=== PATIENT | female | born 1990 | race Caucasian/White ===

== ENCOUNTER 2020-05-20 18:53 | Emergency (ER) | payer OTHER ==
[2020-05-20 19:04] VITALS: BP 120/85; PULSE 88; TEMP 98.7; BMI 33.2
[2020-05-20] MEDS ORDERED: diazePAM 5 MG TABLET PO ONE (20:01)
[2020-05-20] MEDS ORDERED: KETOROLAC TROMETHAMINE 30 MG/1 ML VIAL IM ONE (20:01)
[2020-05-20] MEDS ORDERED: diazePAM 5 MG TABLET ONE (20:13)
[2020-05-20] MEDS ORDERED: KETOROLAC TROMETHAMINE 60 MG/2 ML VIAL ONE (20:14)
--- NOTE | 2020-05-20 20:21 | PDOC ---
History of Present Illness - General Chief Complaint: Vaginal Bleeding Stated Complaint: BACK PAIN Time Seen by Provider: 05/20/20 19:35 History Source: Patient Exam Limitations: No Limitations - History of Present Illness Initial Comments: 05/20/20 20:16 29-year-old female Yoruba-speaking with history of lumbar "disc inflammation" presents complaining of low back pain radiating to bilateral hips x 3 days worsening today with associated numbness. Denies weakness, tingling, fever, direct trauma, urinary incontinence, bowel incontinence. Took an NSAID at approximately 8 AM today with minimal to no relief. Contrary to triage note, patient is not here for a complaint of vaginal bleeding. Patient began her normal menses yesterday. Denies pelvic cramping or pain and reports her menses is normal. Patient has an IUD in place. Denies any possibility of being . ROS: as above PE: GENERAL: Appears uncomfortable, sitting in a wheelchair leaning on her right side HEAD: NCAT EYES: Pupils equal, round and reactive to light, sclera anicteric, conjunctiva clear ENT: pharynx: no erythema, no exudate, uvula midline NECK: supple CHEST: nontender RESP: clear, no w/r/r CARDIO: rrr, no m/g/r ABD: +BS, soft, nontender, non distended BACK: left-sided thoracic and lumbar paraspinal tenderness to palpation, no midline spinal tenderness to palpation EXTREMITIES: Normal range of motion, no edema NEUROLOGICAL: Normal speech, unable to ambulate due to pain, 5/5 strength and sensation SKIN: Warm, Dry 05/20/20 20:59 Is this a multiple visit Asthma Patient?: No Past History - Medical History Allergies/Adverse Reactions: Allergies Allergy/AdvReac Type Severity Reaction Status Date / Time No Known Allergies Allergy Verified 05/20/20 19:01 Home Medications: Ambulatory Orders Cyclobenzaprine HCl 10 mg PO TID 3 Days #12 tablet 05/20/20 COPD: No - Reproductive History Is Patient Now?: No - Psycho-Social/Smoking History Smoking History: Never smoked Have you smoked in the past 12 months: No - Substance Abuse Hx (Audit-C & DAST Scrn) How often the patient has a drink containing alcohol: Never Score: In Men: 4 or > Positive; In Women: 3 or > Positive: 0 Screen Result (Pos requires Nsg. Audit-10AR): Negative *Physical Exam - Vital Signs Last Vital Signs Temp Pulse Resp BP Pulse Ox 98.7 F 88 18 120/85 100 05/20/20 19:01 05/20/20 19:01 05/20/20 19:01 05/20/20 19:01 05/20/20 19:01 ED Treatment Course - RADIOLOGY Radiology Studies Ordered: Category Date Time Status SPINE-LUMBAR SACRAL [RAD] Stat Radiology 05/20/20 20:01 Ordered SPINE-THORACIC [RAD] Stat Radiology 05/20/20 20:01 Ordered Medical Decision Making - Medical Decision Making 05/20/20 20:37 29-year-old female Yoruba-speaking with history of lumbar "disc inflammation" presents complaining of low back pain radiating to bilateral hips x 3 days worsening today with associated numbness. Denies weakness, tingling, fever, direct trauma, urinary incontinence, bowel incontinence. Took an NSAID at approximately 8 AM today with minimal to no relief. Contrary to triage note, patient is not here for a complaint of vaginal bleeding. Patient began her normal menses yesterday. Denies pelvic cramping or pain and reports her menses is normal. Patient has an IUD in place. Denies any possibility of being . thoracic and lumbar spine xrays toradol 30 mg IM valium 5 mg po x 1 dose re assess 05/20/20 20:48 LS and thoracic xray - lumbar straightening on my wet read patient has IUD in place will observe in ED for improvement of pain signed out to ABIDA Dash Discharge - Discharge Information Problems reviewed: Yes Clinical Impression/Diagnosis: Back pain Qualifiers: Back pain location: low back pain Chronicity: acute Back pain laterality: left Sciatica presence: with sciatica Sciatica laterality: sciatica of right side Qualified Code(s): M54.41 - Lumbago with sciatica, right side Condition: Stable Disposition: HOME - Admission No - Additional Discharge Information Prescriptions: Cyclobenzaprine HCl 10 mg PO TID 3 Days #12 tablet - Follow up/Referral Referrals: [facility] [place] [Provider Group] - Patient Discharge Instructions Additional Instructions: Alternate between acetaminophen 975 mg and ibuprofen 600 mg every 6 hours as needed for pain Take cyclobenzaprine 10 mg 1 tablet every 8 hours as needed Make an appointment to follow-up with a primary care physician within 1 week If worsening pain or any concerning symptoms return to ED - Post Discharge Activity
--- NOTE | 2020-05-20 21:18 | PDOC ---
*Physical Exam - Vital Signs Last Vital Signs Temp Pulse Resp BP Pulse Ox 98.7 F 88 18 120/85 100 05/20/20 19:01 05/20/20 19:01 05/20/20 19:01 05/20/20 19:01 05/20/20 19:01 ED Treatment Course - Medications Given in the ED: ED Medications Discontinued Medications Generic Name Dose Route Start Last Admin Trade Name Mau PRN Reason Stop Dose Admin Diazepam 5 mg 05/20/20 20:01 05/20/20 20:29 Valium - PO 05/20/20 20:02 5 mg ONCE ONE Administration Ketorolac Tromethamine 30 mg 05/20/20 20:01 05/20/20 20:29 Toradol Injection - IM 05/20/20 20:02 30 mg ONCE ONE Administration ED Progress Note - Progress Note Progress Note: 05/20/20 21:17 Briefly this is a 29-year-old female with lower back pain for 3 days. Patient was signed out to me by provider Karen Busch pending improvement of pain with medicine. Patient's exam is significant for tenderness to palpation over the lumbar paravertebrals without midline tenderness or neurological deficit. Patient received Toradol and Valium X-ray shows lumbar straightening Will reassess patient's pain and adjust treatment as needed Medical Decision Making - Medical Decision Making 05/20/20 22:06 Patient reports improvement in pain with meds and was able to ambulate in the ED Patient discharged with ibuprofen and Flexeril Patient was instructed not to drive or operate heavy machinery while taking Flexeril the patient was also instructed not to take the medication with any other sedating medications and not to drink alcohol while taking the medication. Pt appears well and is safe and stable for discharge with strict return precautions including signs and symptoms requring immediate return to the ED Supportive care instructions explained and given to pt. Reasons to return emergently to ER explained and given. Importance of follow up with PMD and other specialists as indicated stressed to pt. Pt verbalized understanding of instructions. Pt to follow up with PMD in 2 days. Discharge - Discharge Information Problems reviewed: Yes Clinical Impression/Diagnosis: Back pain Qualifiers: Back pain location: low back pain Chronicity: acute Back pain laterality: left Sciatica presence: with sciatica Sciatica laterality: sciatica of right side Qualified Code(s): M54.41 - Lumbago with sciatica, right side Condition: Stable Disposition: HOME - Additional Discharge Information Prescriptions: Cyclobenzaprine HCl 10 mg PO TID 3 Days #12 tablet Ibuprofen [Ibu] 600 mg PO TID 7 Days #21 tablet - Follow up/Referral Referrals: [facility] [place] [Provider Group] - Patient Discharge Instructions Patient Printed Discharge Instructions: DI for Back Pain With Sciatica Additional Instructions: Alternate between acetaminophen 975 mg and ibuprofen 600 mg every 6 hours as needed for pain Take cyclobenzaprine 10 mg 1 tablet every 8 hours as needed Make an appointment to follow-up with a primary care physician within 1 week If worsening pain or any concerning symptoms return to ED Print Language: SCOTTISH - Post Discharge Activity Work/Back to School Note: Back to Work
[2020-05-20] MEDS ORDERED: ACETAMINOPHEN 325 MG TABLET (FP) PO ONE (21:39)
[2020-05-20] MEDS ORDERED: ACETAMINOPHEN 325 MG TABLET (FP) ONE (22:00)
== END 2020-05-20 22:21 | disposition home or self-care (01) ==
LOC: JER 18:53
PROC: 3E0233Z Introduction of Anti-inflammatory into Muscle, Percutaneous Approach (ICD-10-PCS; principal; 2020-05-20)
DX: M54.41 Lumbago with sciatica, right side (principal)
CPT/HCPCS: 72070-TC-FY; 72100-TC-FY; 99284-25

== ENCOUNTER 2022-05-01 20:46 | Emergency (ER) | payer OTHER ==
[2022-05-01 20:58] VITALS: BP 109/72; PULSE 81; RESP 19; BMI 29.1
[2022-05-01 21:01] VITALS: TEMP 98.6
[2022-05-01 22:23] LABS: BASO % 0.1 % (0-2.0); EOS % 0.8 % (0-4.5); HEMATOCRIT 36.3 % (32.4-45.2); MCH 28.1 pg (25.7-33.7); MCHC 33.2 g/dl (32.0-36.0); MEAN CELL VOLUME 84.9 fl (80-96); MEAN PLT VOLUME 7.3 fl (7.5-11.1); MONO % 7.1 % (3.8-10.2); PLATELET COUNT 355 10^3/uL (134-434); RBC 4.27 M/mm3 (3.60-5.2); RDW 13.9 % (11.6-15.6); WHITE BLOOD COUNT 10.3 K/mm3 (4.0-10.0)
[2022-05-01 22:25] LABS: EPI CELLS 8 /uL (0-25.1); HYALINE CASTS 0 /uL (0-3.1); URINE APPEARANCE CLEAR; URINE BACTERIA 1532 /uL (0-1359); URINE BILIRUBIN NEGATIVE (NEGATIVE); URINE COLOR YELLOW; URINE GLUCOSE (UA) NEGATIVE (NEGATIVE); URINE KETONE TRACE (NEGATIVE); URINE LEUK ESTERASE NEGATIVE (NEGATIVE); URINE NITRITE NEGATIVE (NEGATIVE); URINE PROTEIN NEGATIVE (NEGATIVE); URINE RBC 5 /uL (0-23.9); URINE UROBILINOGEN 0.2 mg/dL (0.2-1.0); URINE WBC 6 /uL (0-25.8)
[2022-05-01 22:44] LABS: BLOOD UREA NITROGEN 10.3 mg/dL (7-18)
[2022-05-01 22:47] LABS: CREATININE 0.6 mg/dL (0.55-1.3)
== END 2022-05-02 00:34 | disposition home or self-care (01) ==
LOC: JER 20:46
DX: O23.41 Unspecified infection of urinary tract in pregnancy, first trimester (principal); O26.851 Spotting complicating pregnancy, first trimester; Z3A.01 Less than 8 weeks gestation of pregnancy
CPT/HCPCS: 36415; 76817-TC; 80048; 81003; 84702; 85025; 86850; 86900; 86901; 87086; 87186; 99284-25

== ENCOUNTER 2022-05-09 16:27 | Emergency (ER) | payer OTHER ==
[2022-05-09 16:45] VITALS: BP 103/63; PULSE 76; RESP 18; TEMP 98.2; BMI 37.1
[2022-05-09 18:38] LABS: BASO % 0.5 % (0-2.0); EOS % 1.2 % (0-4.5); HEMATOCRIT 34.8 % (32.4-45.2); HEMOGLOBIN 11.4 GM/dL (10.7-15.3); MCHC 32.9 g/dl (32.0-36.0); MEAN CELL VOLUME 85.1 fl (80-96); MEAN PLT VOLUME 7.4 fl (7.5-11.1); MONO % 5.4 % (3.8-10.2); NEUT % 73.9 % (42.8-82.8); PLATELET COUNT 375 10^3/uL (134-434); RBC 4.09 M/mm3 (3.60-5.2); RDW 13.8 % (11.6-15.6); WHITE BLOOD COUNT 11.4 K/mm3 (4.0-10.0)
[2022-05-09 18:58] LABS: CALCIUM 8.9 mg/dL (8.5-10.1)
[2022-05-09 18:59] LABS: ALBUMIN 3.7 g/dl (3.4-5.0); BLOOD UREA NITROGEN 10.6 mg/dL (7-18)
[2022-05-09 19:02] LABS: CREATININE 0.5 mg/dL (0.55-1.3)
[2022-05-09 19:04] LABS: BILIRUBIN,TOTAL 0.4 mg/dL (0.2-1); TOT PROT 7.4 g/dl (6.4-8.2)
[2022-05-09] MEDS ORDERED: METHOTREXATE SODIUM/PF 25 MG/ML VIAL IM ONE (20:05)
== END 2022-05-09 21:03 | disposition home or self-care (01) ==
LOC: JER 16:27
PROC: 3E023GC Introduction of Other Therapeutic Substance into Muscle, Percutaneous Approach (ICD-10-PCS; principal; 2022-05-09)
DX: N93.9 Abnormal uterine and vaginal bleeding, unspecified (principal); O00.90 Unspecified ectopic pregnancy without intrauterine pregnancy
CPT/HCPCS: 36415; 80053; 84702; 85025; 99284-25; J9260

== ENCOUNTER 2022-08-18 14:10 | Emergency (ER) | payer OTHER ==
[2022-08-18 14:31] VITALS: BP 108/68; PULSE 87; RESP 18; TEMP 99.2; BMI 37.5
[2022-08-18] MEDS ORDERED: ACETAMINOPHEN 500 MG TABLET (FP) PO ONE (16:27)
[2022-08-18] MEDS ORDERED: LIDOCAINE 5% TOPICAL PATCH TP ONE (16:27)
[2022-08-18] MEDS ORDERED: METHOCARBAMOL 500 MG TABLET PO ONE ×2 (16:58→18:05)
[2022-08-18] MEDS ORDERED: METHOCARBAMOL 500 MG TABLET ONE ×2 (17:03→18:16)
[2022-08-18] MEDS ORDERED: LIDOCAINE 5% TOPICAL PATCH ONE (17:04)
[2022-08-18] MEDS ORDERED: ACETAMINOPHEN 325 MG TABLET (FP) ONE (17:04)
[2022-08-18 17:51] LABS: URINE APPEARANCE CLEAR; URINE BILIRUBIN NEGATIVE (NEGATIVE); URINE COLOR YELLOW; URINE GLUCOSE (UA) NEGATIVE (NEGATIVE); URINE KETONE NEGATIVE (NEGATIVE); URINE LEUK ESTERASE NEGATIVE (NEGATIVE); URINE NITRITE NEGATIVE (NEGATIVE); URINE PROTEIN NEGATIVE (NEGATIVE); URINE UROBILINOGEN 0.2 mg/dL (0.2-1.0)
[2022-08-18] MEDS ORDERED: KETOROLAC TROMETHAMINE 30 MG/1 ML VIAL IM ONE (18:03)
[2022-08-18] MEDS ORDERED: KETOROLAC TROMETHAMINE 30 MG/1 ML VIAL ONE (18:16)
[2022-08-19] MEDS ORDERED: LIDOCAINE PATCH REMOVAL MC SCH (05:00)
== END 2022-08-18 19:14 | disposition home or self-care (01) ==
LOC: JER 14:10
PROC: 3E023GC Introduction of Other Therapeutic Substance into Muscle, Percutaneous Approach (ICD-10-PCS; principal; 2022-08-18)
DX: M54.50 Low back pain, unspecified (principal)
CPT/HCPCS: 81003; 84703; 87086; 87186; 99284-25